=== PATIENT | female | born 1955 | race Caucasian/White ===

== ENCOUNTER → 2021-08-23 | Outpatient (CLI) | payer OTHER ==
[~2021-08-23] MED LIST: CYANOCOBAL1000 MCG/1 IM; FLECAINIDE ACET50 M2 PO; GLIPIZIDE ER5 MG PO; GRALISE600 MG PO; JANTOVEN7.5 MG PO; LOVENOX40 MG/0.4 SUBQ; PROTONIX40 M2 PO; REQUIP 0.25 M0.25 M1 PO; SYNTHROID112 MC1 PO; TRESIBA100 UNIT/1 SUBQ; VITAMIN B6100 MG/2.5 PO; XANAX 0.5 MG0.5 MG PO
== END ==
LOC: LAB 12:04
PROVIDERS: ATTEND Student in an Organized Health Care Education/Training Program
DX: Z01.812 Encounter for preprocedural laboratory examination (principal); Z20.822 Contact with and (suspected) exposure to COVID-19

== ENCOUNTER → 2021-08-27 | Outpatient (CLI) | payer OTHER ==
[~2021-08-27] VITALS: Ht 175.3 cm; Wt 109.3 kg
[2021-08-27 09:29] LABS: INR 1.05; PROTIME 11.4 Seconds (10.5-12.1)
--- NOTE | 2021-08-29 13:08 | PATH ---
[facility] [place] [address] PATHOLOGY RPT PROCEDURE Name: BRISA HERNÁNDEZ Room #: REG [facility]ONA ..#: [id number] Admission: 08/27/21 Date of : 57 Discharge: Report #: [id number] Path Case #: [id number] [facility] Accession Number: [id number] . 01 Material submitted: . PART A: duodenum - DUODENUM FOR CELIAC PART B: stomach - ANTRUM FOR H. PYLORI PART C: gastrointestinal site - GASTRIC POLYP PART D: colon - ASCENDING COLON POLYPS. Modifiers: ascending . 01 Clinical history: . ESOPHAGOGASTRODUODENOSCOPY, COLONOSCOPY LUQ PAIN, REFLUX, BLOATING, HX POLYPS GASTRIC POLYP, HIATAL HERNIA, ASCENDING COLON POLYPS, HEMORRHOIDS . 02 Diagnosis: A. Duodenum, endoscopic biopsy: - Small bowel mucosa with preserved villous morphology. - Negative for celiac disease, peptic duodenitis, or Giardiasis. . B. Gastric antrum, endoscopic biopsy: - Gastric antral mucosa with mild chronic inactive gastritis. - An H. pylori immunohistochemical stain is negative for H. pylori-like organism. . C. Gastric polyp, endoscopic biopsy: - Polypoid gastric antral mucosa with surface hyperplastic changes and chronic nonspecific inflammation. - No H. pylori-like organisms identifed on H and E. - Negative for dysplasia or malignancy. . D. Ascending colon polyps, polypectomy: - Tubular adenomas. - Negative for high-grade dysplasia or malignancy. (ANK:sedrick; 08/28/2021) QMS 08/28/2021 1100 Local . 02 Electronically signed: . Joyce Delgadillo MD, Pathologist NPI- [id number] . 01 Gross description: . A. The specimen is received in formalin, labeled "Brisa Hernández, duodenum for celiac". Received are 2 segments of pale crandall tissue ranging in size from 0.3 to 0.4 cm in maximum dimensions. The specimen is submitted entirely in cassette A1[place] [address] PATHOLOGY RPT PROCEDURE Name: BRISA HERNÁNDEZ Room #: REG [facility].#: [id number] Admission: 08/27/21 Date of : 57 Discharge: Report #: [id number] Path Case #: [id number] B. The specimen is received in formalin, labeled "Brisa Hernández, antrum for H. pylori". Received are 3 segments of pale crandall tissue ranging in size from 0.2 cm to 0.6 cm in maximum dimensions. The specimen is submitted entirely in cassette B1. . C. The specimen is received in formalin, labeled "Chelo, Brisa, gastric polyp". Received is a segment of pale crandall tissue measuring 0.4 cm in maximum dimensions. The specimen is submitted entirely in cassette C1. . D. The specimen is received in formalin, labeled "Chelo, Brisa, ascending colon polyps (3)". Received are 5 segments of pale crandall tissue ranging in size from 0.2 cm to 0.4 cm in maximum dimensions. The specimen is submitted entirely in cassette D1.([facility]; 08/27/2021) [facility] 08/27/2021 1824 Local . 02 Pathologist provided ICD-10: K29.50, D12.2, K21.00, R14.0, Z86.010 . 02 CPT . 311467, 520317, 665920, [id number] Specimen Comment: A courtesy copy of this report has been sent to [phone], [phone] Specimen Comment: [id number] Specimen Comment: Report sent to / DR LEE Specimen Comment: A duplicate report has been generated due to demographic updates. Performed at: [address], [place], [place] [id number] MD Paul Andino MD Phone: [phone] Performed at: [address] [id number] MD Joyce Delgadillo MD Phone: [phone]
== END | disposition home or self-care (01) ==
LOC: GI
PROVIDERS: ATTEND Internal Medicine Gastroenterology
DX: Z12.11 Encounter for screening for malignant neoplasm of colon (principal); Z86.010 Personal history of colon polyps; D12.2 Benign neoplasm of ascending colon; K64.8 Other hemorrhoids; K29.50 Unspecified chronic gastritis without bleeding; K31.7 Polyp of stomach and duodenum; K44.9 Diaphragmatic hernia without obstruction or gangrene; R14.0 Abdominal distension (gaseous); R10.10 Upper abdominal pain, unspecified; R12 Heartburn; K21.9 Gastro-esophageal reflux disease without esophagitis; E11.9 Type 2 diabetes mellitus without complications; I48.91 Unspecified atrial fibrillation; G20 Parkinson's disease; F17.210 Nicotine dependence, cigarettes, uncomplicated; F41.9 Anxiety disorder, unspecified; Z98.890 Other specified postprocedural states; Z79.899 Other long term (current) drug therapy; Z85.118 Personal history of other malignant neoplasm of bronchus and lung; Z95.0 Presence of cardiac pacemaker; Z90.49 Acquired absence of other specified parts of digestive tract; Z90.710 Acquired absence of both cervix and uterus; Z79.01 Long term (current) use of anticoagulants
CPT/HCPCS: 62110; 62900